=== PATIENT | male | born 1960 | race Two or more races ===

== ENCOUNTER 2016-06-05 01:14 | Emergency (ER) | payer OTHER ==
[~2016-06-05] VITALS: Ht 165.1 cm; Wt 68.0 kg
[2016-06-05] MEDS ORDERED: NS 1000ML IV STA (01:45)
--- NOTE | 2016-06-05 01:45 | NUR ---
URINE COLLECTED AND TAKEN TO LAB
--- NOTE | 2016-06-05 01:49 | ER.PDOC ---
General Chief Complaint: Abdomen Pain Stated Complaint: VOMITING/ABD PAIN Time seen by MD: 01:47 Source: patient Exam Limitations: no limitations History of Present Illness Initial Comments Abdominal pain for 4 days Severity/Quality: moderate Radiation: no radiation Associated Symptoms: nausea/vomiting Exacerbated by: nothing Relieved By: nothing Allergies: Coded Allergies: ciprofloxacin (Verified Allergy, Unknown, 06/05/16) Vital Signs First Vital Signs Date Time Temp Pulse Resp B/P Pulse Ox O2 Delivery O2 Flow Rate FiO2 06/05/16 01:28 97.4 64 16 98 Last Vital Signs Date Time Temp Pulse Resp B/P Pulse Ox O2 Delivery O2 Flow Rate FiO2 06/05/16 01:32 97.4 06/05/16 01:28 64 16 98 Past Medical History Medical History: hypertension Surgical History: appendectomy, cholecystectomy, tonsillectomy Social History Smoking: non-smoker Alcohol Use: none Drug Use: none Constitutional: no symptoms reported Respiratory: no symptoms reported Cardiovascular: no symptoms reported Gastrointestinal: see HPI Genitourinary: no symptoms reported Musculoskeletal: no symptoms reported Skin: no symptoms reported All Other Systems: Reviewed and Negative Physical Exam General Appearance: No Apparent Distress, WD/WN Neck: Non-Tender, Full Range of Motion, Supple, Normal Inspection Respiratory: chest non-tender, lungs clear, normal breath sounds, no respiratory distress, no accessory muscle use Cardiovascular: Normal Peripheral Pulses, Regular Rate, Rhythm, No Edema, No Gallop, No JVD, No Murmur Gastrointestinal: Normal Bowel Sounds, No Organomegaly, No Pulsatile Mass, Tenderness (generalized) Back: Normal Inspection, No CVA Tenderness, No Vertebral Tenderness Extremities: Normal Range of Motion, Non-Tender, Normal Inspection, No Pedal Edema, No Calf Tenderness, Normal Capillary Refill, Pelvis Stable 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
[2016-06-05] MEDS ORDERED: NS 1000ML 1,000 ML IV STA (01:56)
[2016-06-05] MEDS ORDERED: NS 1000ML 1,000 ML ONE (02:16)
[2016-06-05 02:31] LABS: BASOPHIL % 0.3 % (0.0-0.2); EOSINOPHIL # 0.2 10^3/uL (0.0-0.2); EOSINOPHIL % 2.7 % (0.0-5.0); HEMATOCRIT 42.1 % (37.0-53.0); HEMOGLOBIN 14.5 g/dL (13.9-16.3); LYMPHOCYTES # 2.6 10^3/uL (1.0-4.8); LYMPHOCYTES % 43.7 % (24.0-44.0); MEAN CELL HGB CONCENTRATION 34.4 g/dL (33-37); MEAN CORP VOLUME 81.3 fL (78-100); MEAN PLATELET VOLUME 10.4 fL (7.8-11.0); MONOCYTES # 0.5 10^3/uL (0.3-0.8); MONOCYTES % 8.7 % (5.0-12.0); NEUTROPHIL # 2.6 10^3/uL (1.8-7.7); NEUTROPHILS % 44.4 % (41.0-85.0); RED CELL DISTRIBUTION WIDTH 13.7 % (11.5-14.5); WHITE BLOOD CELL 5.9 10^3/uL (4.5-11.0)
[2016-06-05 02:34] LABS: BILIRUBIN,URINE NEGATIVE (NEGATIVE)
[2016-06-05 02:36] LABS: APPEARANCE,URINE CLEAR (CLEAR); UA COLOR YELLOW (YELLOW)
[2016-06-05 02:40] LABS: CALCIUM 8.2 mg/dL (8.4-10.5)
--- NOTE | 2016-06-05 02:42 | NUR ---
TO CT PATIENT TO CT VIA WHEELCHAIR WITH NAHOMI PATE
--- NOTE | 2016-06-05 02:54 | NUR ---
BACK FROM CT PATIENT BACK FROM CT, NO NEEDS VOICED BY PATIENT
--- NOTE | 2016-06-05 03:39 | DIREP ---
PROCEDURE:CT ABD/PELVIS WITH CONTRAST TECHNIQUE:Following the intravenous administration of contrast material, arterial phase cuts were obtained through the abdomen, followed by venous phase cuts through the abdomen and pelvis. The images were viewed at lung and soft tissue settings. Sagittal and coronal reconstructions are provided. COMPARISON:None. INDICATIONS:Abdominal pain FINDINGS: LOWER CHEST:The lung bases are clear. LIVER:Small 7.3 mm cyst in the right lobe liver. BILIARY:The gallbladder has been resected. PANCREAS:Normal. SPLEEN:Normal. URINARY TRACT:Normal. ADRENALS:Normal. AORTA/VASCULAR:Normal. RETROPERITONEUM:Normal. BOWEL/MESENTERY:The vermiform appendix is not definitely visualized, but there is no pericecal inflammation or fluid collection to suggest appendicitis. ABDOMINAL WALL:Normal. PELVIS:Normal. BONES:Moderate disc is lost and degenerative disc changes of L5/S1. Moderate bridging endplate enthesophyte seen involving L2 through L4. Mild degenerative changes in the bilateral SI joints. OTHER:Normal. CONCLUSION: 1. Appendix not definitely identified, but no CT evidence of appendicitis. 2. Moderate degenerative changes in the lumbar spine. 3. No acute abnormality identified. Dictated by: Yoseph Paredes MD on 06/05/2016 at 03:27 AM
--- NOTE | 2016-06-05 03:44 | NUR ---
iv dc'd tip intact, no bleeding
== END 2016-06-05 03:50 | disposition home or self-care (01) ==
LOC: ER 01:14
DX: R10.84 Generalized abdominal pain (principal); R11.2 Nausea with vomiting, unspecified; I10 Essential (primary) hypertension; Z88.1 Allergy status to other antibiotic agents; Z90.49 Acquired absence of other specified parts of digestive tract
CPT/HCPCS: 36415; 74177; 80053; 81002; 83690; 85025; 85610; 85730; 86677; 93005; 96360; 99285; J7030; Q9967